=== PATIENT | male | born 1965 | race Caucasian/White ===

== ENCOUNTER → 2021-03-04 | Outpatient (CLI) | payer BC, OTHER ==
--- NOTE | 2021-03-04 13:07 | Diagnostic Imaging Report ---
INDICATION: Low back pain. Three views of the lumbosacral spine shows normal height and alignment of the vertebral bodies. Disc spaces are well-maintained. There is minimal spondylosis. There are mild degenerated facets at L5. There is no fracture. IMPRESSION: There are mild degenerative changes present with no acute abnormality seen. Dictated by: Dictated on workstation # [id number]
== END ==
LOC: RAD 10:21
PROVIDERS: ATTEND Family Medicine
DX: Z02.71 Encounter for disability determination (principal); M47.816 Spondylosis without myelopathy or radiculopathy, lumbar region
CPT/HCPCS: 72100